=== PATIENT | female | born 1990 | race Two or more races ===

== ENCOUNTER 2021-04-22 11:41 | Observation (INO) | payer OTHER ==
[~2021-04-22] VITALS: Ht 170.2 cm; Wt 85.3 kg
[2021-04-22 13:27] LABS: BASOPHILS % (AUTO) 0.2 % (0.0-2.0); EOSINOPHILS # (AUTO) 0.1 K/uL (0-0.4); EOSINOPHILS % (AUTO) 0.5 % (0.0-4.0); HEMATOCRIT 36.9 % (36-48); HEMOGLOBIN 12.1 g/dL (12.0-16.0); LYMPHOCYTES # (AUTO) 2.3 K/uL (2.5-16.5); MEAN CORPUSCULAR HEMOGLOBIN 27 pg (27-31); MEAN CORPUSCULAR HGB CONC 33 g/dL (33-37); MEAN CORPUSCULAR VOLUME 82.1 fL (80-94); MONOCYTES # (AUTO) 0.7 K/uL (0.8-1.0); MONOCYTES % (AUTO) 6.3 % (1.7-9.3); NEUTROPHILS # (AUTO) 7.4 K/uL (1.8-7.7); PLATELET COUNT (AUTO) 274 K/uL (140-450); RED BLOOD CELL COUNT(AUTO) 4.49 MIL/uL (4.20-5.40); RED CELL DISTRIBUTION WIDTH 13.9 % (11.6-13.7); WHITE BLOOD COUNT (AUTO) 10.4 K/uL (4.8-10.8)
[2021-04-22 13:36] LABS: APPEARANCE,URINE CLEAR (CLEAR); BILIRUBIN,URINE NEGATIVE (NEGATIVE); BLOOD, URINE NEGATIVE (NEGATIVE); COLOR,URINE YELLOW (YELLOW); LEUKOCYTE ESTERASE ,URINE NEGATIVE (NEGATIVE); NITRITE, URINE NEGATIVE (NEGATIVE); UGLUCOSE NEGATIVE (NEGATIVE)
== END 2021-04-22 20:10 | disposition home or self-care (01) ==
LOC: MLD 11:41
PROVIDERS: ADMIT Obstetrics & Gynecology; ATTEND Obstetrics & Gynecology
DX: O26.893 Other specified pregnancy related conditions, third trimester (principal); R10.9 Unspecified abdominal pain; R31.9 Hematuria, unspecified; Z20.822 Contact with and (suspected) exposure to COVID-19; Z3A.30 30 weeks gestation of pregnancy
CPT/HCPCS: 36415; 59025; 76805; 81003; 82731; 85025; 87086; 87426; C1758; G0378; Q0092

== ENCOUNTER 2021-06-16 10:30 | Observation (INO) | payer OTHER, SELFPAY ==
[2021-06-16 11:15] VITALS: BP 118/80
== END 2021-06-16 15:40 | disposition home or self-care (01) ==
LOC: MLD 10:30
PROVIDERS: ADMIT Obstetrics & Gynecology; ATTEND Obstetrics & Gynecology
DX: O26.893 Other specified pregnancy related conditions, third trimester (principal); R10.9 Unspecified abdominal pain; Z20.822 Contact with and (suspected) exposure to COVID-19; O34.219 Maternal care for unspecified type scar from previous cesarean delivery; Z3A.38 38 weeks gestation of pregnancy
CPT/HCPCS: 59025; 76805; 76815; 81000; 87426; G0378; G0379; Q0092

== ENCOUNTER 2021-06-19 07:21 | Inpatient (IN) | payer OTHER, SELFPAY ==
[~2021-06-19] VITALS: Ht 170.2 cm; Wt 88.0 kg
[2021-06-19] MEDS ORDERED: PRETAB PO (07:45)
[2021-06-19] MEDS ORDERED: LACTATED RINGERS 1,000 ML IV SCH (07:45)
[2021-06-19 08:28] LABS: BASOPHILS # (AUTO) 0.1 K/uL (0.00-0.22); BASOPHILS % (AUTO) 0.5 % (0.0-2.0); EOSINOPHILS # (AUTO) 0.1 K/uL (0-0.4); EOSINOPHILS % (AUTO) 0.7 % (0.0-4.0); HEMATOCRIT 36.9 % (36-48); HEMOGLOBIN 12.1 g/dL (12.0-16.0); LYMPHOCYTES # (AUTO) 2.6 K/uL (2.5-16.5); LYMPHOCYTES % (AUTO) 25.5 % (20.5-51.1); MEAN CORPUSCULAR HEMOGLOBIN 26 pg (27-31); MEAN CORPUSCULAR HGB CONC 33 g/dL (33-37); MEAN CORPUSCULAR VOLUME 80.1 fL (80-94); MONOCYTES # (AUTO) 0.7 K/uL (0.8-1.0); MONOCYTES % (AUTO) 6.6 % (1.7-9.3); NEUTROPHILS # (AUTO) 6.7 K/uL (1.8-7.7); NEUTROPHILS % (AUTO) 66.7 % (42.2-75.2); PLATELET COUNT (AUTO) 221 K/uL (140-450); RED CELL DISTRIBUTION WIDTH 16.3 % (11.6-13.7); WHITE BLOOD COUNT (AUTO) 10.1 K/uL (4.8-10.8)
[2021-06-19 08:44] LABS: APPEARANCE,URINE CLEAR (CLEAR); BILIRUBIN,URINE NEGATIVE (NEGATIVE); BLOOD, URINE NEGATIVE (NEGATIVE); COLOR,URINE YELLOW (YELLOW); LEUKOCYTE ESTERASE ,URINE 1+ (NEGATIVE); NITRITE, URINE NEGATIVE (NEGATIVE); UGLUCOSE NEGATIVE (NEGATIVE)
[2021-06-19 08:52] LABS: RBC,URINE 0-5 /HPF (0-5)
[2021-06-19 08:53] LABS: WBC,URINE 0-5 /HPF (0-5)
[2021-06-19 09:28] LABS: ALBUMIN 2.4 g/dL (3.4-5.0); ANION GAP 19.8 (8-16); CARBON DIOXIDE 20.8 mmol/L (21-32); CREATININE 0.7 mg/dL (0.6-1.3); POTASSIUM 3.6 mmol/L (3.5-5.1); TOTAL BILIRUBIN 0.8 mg/dL (0.0-1.0)
[2021-06-19] MEDS ORDERED: MIDAZOLAM 2 MG/2 ML VIAL ONE (12:12)
[2021-06-19] MEDS ORDERED: MORPHINE PRES FREE 10 MG/10 ML AMP IV ONE (12:12)
[2021-06-19] MEDS ORDERED: fentaNYL citrate 0.05 MG/ML VIAL ONE (12:12)
[2021-06-19] MEDS ORDERED: OXYTOCIN 10 UNITS/ML VIAL IM ONE (13:15)
[2021-06-19] MEDS ORDERED: ONDANSETRON 4 MG/2 ML VIAL IVP PRN ×2 (13:20)
[2021-06-19] MEDS ORDERED: diphenhydrAMINE 50 MG/ML VIAL IVP PRN ×2 (13:20)
[2021-06-19] MEDS ORDERED: NALOXONE 0.4 MG/ML VIAL IVP PRN ×2 (13:20)
[2021-06-19] MEDS ORDERED: MEPERIDINE 25 MG/ML SYR IVP PRN (13:20)
[2021-06-19] MEDS ORDERED: OXYTOCIN 20 UNITS in LACTATED RINGERS 1,000 ML IV SCH (13:20)
--- NOTE | 2021-06-19 13:20 | NUR ---
present for delivery with l and d staff at bedside. baby came out breathing on her own, audible cry, and moving all extremities. girl urinated and stooled shortly after delivery. no resp distress noted during delivery despite cord wrapped around baby at time of delivery. md was able to free infant wo issue from cord. RT and student present and discharged by RN at [facility] after wiped down, banded, and weighed.
[2021-06-19] MEDS ORDERED: CARBOPROST 250 MCG/ML AMP IM ONE ×2 (13:30→13:31)
--- NOTE | 2021-06-19 14:14 | NUR ---
PATIENT HAS BEEN SCREENED AND CATEGORIZED LOW NUTRITION RISK. PATIENT WILL BE SEEN WITHIN 7 DAYS OF ADMISSION. 06/25/[address]
[2021-06-19] MEDS ORDERED: OXYTOCIN 20 UNITS/LR PREMIX 1,000 ML IV ONE (14:52)
[2021-06-19] MEDS ORDERED: MEASLES, MUMPS, AND RUBELLA 1 VIAL SQVAC ONE (15:20)
[2021-06-19] MEDS ORDERED: HYDROmorphone 1 MG/ML AMP IVP PRN (15:20)
[2021-06-19] MEDS ORDERED: MEASLES, MUMPS, AND RUBELLA 1 VIAL SQVAC PRN (15:40)
[2021-06-19] MEDS ORDERED: SIMETHICONE 80 MG TAB.CHEW PO SCH (17:00)
[2021-06-19] MEDS: KETOROLAC 30 MG/ML VIAL IM/IVP SCH (18:04)
[2021-06-19] MEDS: OXYTOCIN 20 UNITS in LACTATED RINGERS 1,000 ML IV SCH (20:37)
[2021-06-20] MEDS: KETOROLAC 30 MG/ML VIAL IM/IVP SCH ×2 (00:01→05:46)
[2021-06-20] MEDS ORDERED: OXYTOCIN 20 UNITS/LR PREMIX 1,000 ML IV ONE ×2 (05:12→13:25)
[2021-06-20] MEDS: OXYTOCIN 20 UNITS in LACTATED RINGERS 1,000 ML IV SCH ×2 (05:47→13:32)
[2021-06-20 09:08] LABS: BASOPHILS % (AUTO) 0.1 % (0.0-2.0); HEMATOCRIT 29.1 % (36-48); HEMOGLOBIN 9.8 g/dL (12.0-16.0); LYMPHOCYTES # (AUTO) 2.4 K/uL (2.5-16.5); LYMPHOCYTES % (AUTO) 17.5 % (20.5-51.1); MEAN CORPUSCULAR HEMOGLOBIN 27 pg (27-31); MEAN CORPUSCULAR HGB CONC 34 g/dL (33-37); MEAN CORPUSCULAR VOLUME 79.9 fL (80-94); MONOCYTES # (AUTO) 1.1 K/uL (0.8-1.0); NEUTROPHILS # (AUTO) 10.4 K/uL (1.8-7.7); NEUTROPHILS % (AUTO) 74.4 % (42.2-75.2); PLATELET COUNT (AUTO) 194 K/uL (140-450); RED BLOOD CELL COUNT(AUTO) 3.64 MIL/uL (4.20-5.40)
[2021-06-20] MEDS: KETOROLAC 30 MG/ML VIAL IVP PRN ×2 (15:44→23:22)
[2021-06-21] MEDS: KETOROLAC 30 MG/ML VIAL IVP PRN (06:57)
[2021-06-21] MEDS: DOCUSATE SODIUM 100 MG GELCAP PO SCH (08:40)
[2021-06-21] MEDS: SIMETHICONE 80 MG TAB.CHEW PO SCH ×3 (08:40→17:00)
[2021-06-21] MEDS: bisacodyL 5 MG TABEC PO SCH (08:40)
[2021-06-21] MEDS ORDERED: SODIUM PHOSPHATE 118 ML ENEM RC PRN (09:00)
[2021-06-21] MEDS: IBUPROFEN 600 MG TAB PO PRN (14:00)
[2021-06-21] MEDS: ACETAMINOPHEN 325 MG TAB PO PRN (17:45)
[2021-06-22] MEDS: IBUPROFEN 600 MG TAB PO PRN ×2 (01:28→15:28)
[2021-06-22] MEDS: ACETAMINOPHEN 325 MG TAB PO PRN ×3 (02:10→23:01)
[2021-06-22] MEDS: DOCUSATE SODIUM 100 MG GELCAP PO SCH (09:06)
[2021-06-22] MEDS: SIMETHICONE 80 MG TAB.CHEW PO SCH ×3 (09:06→17:00)
[2021-06-22] MEDS: bisacodyL 5 MG TABEC PO SCH (09:07)
[2021-06-23] MEDS: IBUPROFEN 600 MG TAB PO PRN (07:54)
[2021-06-23] MEDS: bisacodyL 5 MG TABEC PO SCH (07:55)
[2021-06-23] MEDS: DOCUSATE SODIUM 100 MG GELCAP PO SCH (07:55)
[2021-06-23] MEDS: SIMETHICONE 80 MG TAB.CHEW PO SCH (07:55)
== END 2021-06-23 15:50 | disposition home or self-care (01) | DRG 540 ==
LOC: MLD 07:21 → MFCC 16:00
PROVIDERS: ADMIT Obstetrics & Gynecology; ATTEND Obstetrics & Gynecology
PROC: 10D00Z1 Extraction of Products of Conception, Low, Open Approach (ICD-10-PCS; principal; 2021-06-20)
DX: O34.211 Maternal care for low transverse scar from previous cesarean delivery (principal); O69.81X0 Labor and delivery complicated by cord around neck, without compression, not applicable or unspecified; O99.824 Streptococcus B carrier state complicating childbirth; Z3A.39 39 weeks gestation of pregnancy; Z37.0 Single live birth; Z20.822 Contact with and (suspected) exposure to COVID-19
CPT/HCPCS: 36415; 80053; 81001; 85025; 86592; 86886; 86900; 86901; 87081; 87086; J0690; J1885; J2250; J2270; J2590; J3010; J3490; J7060; J7120